=== PATIENT | female | born 2000 | race Two or more races ===

== ENCOUNTER 2021-10-07 19:27 | Emergency (ER) | payer OTHER ==
[~2021-10-07] VITALS: Ht 149.9 cm; Wt 40.8 kg
--- NOTE | 2021-10-07 19:45 | NUR ---
BIBS C/O FEVER, BODY ACHES, AND SORE THROAT X2 DAYS TYLENOL TAKEN PREHEMMER. TEMP@ TRIAGE 98.4. PATIETN ALERT AND ORIENTED X3. AMBULATORY WITH NO NLABORED BREATHING IN BED 02 AWAITING MD LUIS.
--- NOTE | 2021-10-07 20:06 | NUR ---
MD VASQUEZ @ BEDSIDE
--- NOTE | 2021-10-07 20:14 | NUR ---
STREP SWABS DONE AND SENT TO LAB
--- NOTE | 2021-10-07 20:14 | NUR ---
COVID SWAB DONE AND SENT TO LAB
--- NOTE | 2021-10-07 21:15 | NUR ---
PER LAB, FLU NEGATIVE
[2021-10-07] MEDS ORDERED: AZIT250T13 PO (21:49)
[2021-10-07] MEDS ORDERED: AMOX500T2 PO (21:49)
[2021-10-07] MEDS ORDERED: AMOXICILLIN TRIHYDRATE 250 MG CAPSULE ONE (21:54)
[2021-10-07] MEDS ORDERED: AMOXICILLIN TRIHYDRATE 500 MG CAPSULE PO ONE (22:00)
--- NOTE | 2021-10-07 22:09 | NUR ---
Patient discharged to home in stable condition. Written and verbal after care instructions given. Patient verbalizes understanding of instruction.
[2021-10-07 22:11] VITALS: BP 101/58
== END 2021-10-07 22:11 | disposition home or self-care (01) ==
LOC: ER 19:39
DX: J18.9 Pneumonia, unspecified organism (principal); Z20.822 Contact with and (suspected) exposure to COVID-19
CPT/HCPCS: 71045; 87426; 87804; 99284; C9803